=== PATIENT | female | born 1975 | race Caucasian/White ===

== ENCOUNTER 2022-08-15 20:01 | Inpatient (IN) | payer BC ==
[~2022-08-15] VITALS: Ht 154.9 cm; Wt 74.8 kg
[2022-08-15 20:10] VITALS: BP_SYST 180
[2022-08-15] MEDS ORDERED: MORPHINE 4 MG INJ. 4 MG/ML VIAL IVP ONE ×2 (20:15→22:15)
[2022-08-15] MEDS ORDERED: KETOROLAC TROMETHAMINE 30 MG VIAL IVP ONE (20:15)
[2022-08-15] MEDS ORDERED: NACL 0.9% 1,000 ML IV ONE (21:00)
[2022-08-15 21:31] LABS: BASOPHILS # (AUTO) 0.1 K/uL (0.0-0.2); BASOPHILS % (AUTO) 0.9 % (0.0-2.0); EOSINOPHILS # (AUTO) 0.1 K/uL (0.0-0.4); EOSINOPHILS % (AUTO) 2.4 % (0.0-4.0); HEMATOCRIT 36.4 % (36-48); HEMOGLOBIN 12.9 g/dL (12.0-16.0); LYMPHOCYTES # (AUTO) 1.9 K/uL (1.0-5.5); LYMPHOCYTES % (AUTO) 36.5 % (20.5-51.5); MEAN CORPUSCULAR HEMOGLOBIN 30 pg (27-31); MEAN CORPUSCULAR HGB CONC 36 % (32-36); MEAN CORPUSCULAR VOLUME 83 fL (79.0-98.0); MONOCYTES # (AUTO) 0.3 K/uL (0.0-1.0); MONOCYTES % (AUTO) 5.2 % (1.7-9.3); NEUTROPHILS # (AUTO) 2.9 K/uL (1.8-7.7); PLATELET COUNT (AUTO) 230 K/uL (130-430); RED BLOOD CELL COUNT(AUTO) 4.36 MIL/uL (4.2-6.2); RED CELL DISTRIBUTION WIDTH 13.2 % (9.0-15.0); WHITE BLOOD COUNT (AUTO) 5.3 K/uL (4.8-10.8)
[2022-08-15 21:41] LABS: CALCIUM 8.9 mg/dL (8.4-11.0); CREATININE 0.64 mg/dL (0.55-1.30)
[2022-08-15 21:46] LABS: ALBUMIN 3.8 g/dL (3.4-4.8); TOTAL BILIRUBIN 0.2 mg/dL (0.0-1.0)
[2022-08-15] MEDS ORDERED: HYDROcodone/ACETAMIN 10-325 MG TAB PO PRN (22:00)
[2022-08-15] MEDS ORDERED: ACETAMINOPHEN 325 MG TABLET PO PRN (22:00)
[2022-08-15] MEDS ORDERED: HYDR-4284 PO (22:05)
[2022-08-16] MEDS ORDERED: NALOXONE HCL 0.4 MG/ML AMP (NARCAN) IVP PRN (01:00)
[2022-08-16] MEDS: GABAPENTIN 300 MG CAPSULE PO SCH ×4 (01:00→20:47)
[2022-08-16 01:01] VITALS: BP_SYST 144
[2022-08-16 01:03] VITALS: BP_SYST 144
[2022-08-16] MEDS: HYDROmorphone 2 MG TAB PO PRN ×6 (01:50→23:33)
[2022-08-16] MEDS: D5/0.45 NS 1,000 ML IV SCH ×2 (02:18→08:57)
[2022-08-16] MEDS ORDERED: lidocaine (02:30)
[2022-08-16] MEDS: OXYCODONE/ACETAMINOPHEN *10*mg/325 mg TABLET PO PRN ×2 (02:36→20:23)
[2022-08-16 05:51] VITALS: BP_SYST 128
[2022-08-16] MEDS: MORPHINE 4 MG INJ. 4 MG/ML VIAL IVP PRN ×2 (07:34→22:12)
[2022-08-16] MEDS: LIDOCAINE PATCH 5% 1 EA TP SCH (08:58)
[2022-08-16 20:00] VITALS: BP_SYST 143
[2022-08-17] MEDS: OXYCODONE/ACETAMINOPHEN *10*mg/325 mg TABLET PO PRN ×3 (02:25→21:22)
[2022-08-17] MEDS: MORPHINE 4 MG INJ. 4 MG/ML VIAL IVP PRN ×4 (04:09→23:33)
[2022-08-17 05:59] VITALS: BP_SYST 138
[2022-08-17 08:00] VITALS: BP_SYST 149
[2022-08-17] MEDS: GABAPENTIN 300 MG CAPSULE PO SCH ×3 (09:00→22:11)
[2022-08-17] MEDS: LIDOCAINE PATCH 5% 1 EA TP SCH (09:02)
[2022-08-17 09:50] LABS: ALBUMIN 3.8 g/dL (3.4-4.8); CALCIUM 9.4 mg/dL (8.4-11.0); CREATININE 0.63 mg/dL (0.55-1.30); TOTAL BILIRUBIN 0.4 mg/dL (0.0-1.0)
[2022-08-17] MEDS: HYDROmorphone 2 MG TAB PO PRN ×2 (09:56→18:13)
[2022-08-17 10:17] LABS: BASOPHILS % (AUTO) 0.7 % (0.0-2.0); EOSINOPHILS # (AUTO) 0.1 K/uL (0.0-0.4); HEMATOCRIT 39.7 % (36-48); HEMOGLOBIN 13.7 g/dL (12.0-16.0); LYMPHOCYTES # (AUTO) 1.5 K/uL (1.0-5.5); LYMPHOCYTES % (AUTO) 38.7 % (20.5-51.5); MEAN CORPUSCULAR HEMOGLOBIN 29 pg (27-31); MEAN CORPUSCULAR HGB CONC 35 % (32-36); MEAN CORPUSCULAR VOLUME 84 fL (79.0-98.0); MONOCYTES # (AUTO) 0.2 K/uL (0.0-1.0); NEUTROPHILS # (AUTO) 2.1 K/uL (1.8-7.7); NEUTROPHILS % (AUTO) 53.6 % (40.0-70.0); PLATELET COUNT (AUTO) 197 K/uL (130-430); RED CELL DISTRIBUTION WIDTH 12.9 % (9.0-15.0); WHITE BLOOD COUNT (AUTO) 3.9 K/uL (4.8-10.8)
[2022-08-17 16:12] VITALS: BP_SYST 158
[2022-08-17] MEDS: PSYLLIUM HUSK 1 PKT PACKET PO SCH (22:11)
[2022-08-17] MEDS: DOCUSATE SODIUM 100 MG CAPSULE PO SCH (22:11)
[2022-08-18 01:08] VITALS: BP_SYST 157
[2022-08-18] MEDS: HYDROmorphone 2 MG TAB PO PRN ×3 (03:50→18:44)
[2022-08-18] MEDS: OXYCODONE/ACETAMINOPHEN *10*mg/325 mg TABLET PO PRN ×3 (05:06→22:26)
[2022-08-18 06:29] LABS: BASOPHILS % (AUTO) 0.7 % (0.0-2.0); EOSINOPHILS # (AUTO) 0.1 K/uL (0.0-0.4); EOSINOPHILS % (AUTO) 3.1 % (0.0-4.0); HEMATOCRIT 37.1 % (36-48); HEMOGLOBIN 12.9 g/dL (12.0-16.0); LYMPHOCYTES # (AUTO) 1.7 K/uL (1.0-5.5); LYMPHOCYTES % (AUTO) 40.1 % (20.5-51.5); MEAN CORPUSCULAR HEMOGLOBIN 29 pg (27-31); MEAN CORPUSCULAR HGB CONC 35 % (32-36); MEAN CORPUSCULAR VOLUME 84 fL (79.0-98.0); MONOCYTES # (AUTO) 0.2 K/uL (0.0-1.0); MONOCYTES % (AUTO) 5.1 % (1.7-9.3); NEUTROPHILS # (AUTO) 2.2 K/uL (1.8-7.7); PLATELET COUNT (AUTO) 194 K/uL (130-430); RED BLOOD CELL COUNT(AUTO) 4.43 MIL/uL (4.2-6.2); RED CELL DISTRIBUTION WIDTH 12.5 % (9.0-15.0); WHITE BLOOD COUNT (AUTO) 4.2 K/uL (4.8-10.8)
[2022-08-18 06:55] LABS: CALCIUM 9.1 mg/dL (8.4-11.0); CREATININE 0.63 mg/dL (0.55-1.30)
[2022-08-18 08:00] VITALS: BP_SYST 137
[2022-08-18] MEDS: GABAPENTIN 300 MG CAPSULE PO SCH ×3 (08:45→21:59)
[2022-08-18] MEDS: DOCUSATE SODIUM 100 MG CAPSULE PO SCH ×2 (08:45→21:59)
[2022-08-18] MEDS: MORPHINE 4 MG INJ. 4 MG/ML VIAL IVP PRN ×2 (08:46→16:02)
[2022-08-18] MEDS: LIDOCAINE PATCH 5% 1 EA TP SCH (09:00)
[2022-08-18] MEDS: PSYLLIUM HUSK 1 PKT PACKET PO SCH ×3 (09:00→22:00)
[2022-08-18 12:00] VITALS: BP_SYST 130
[2022-08-18] MEDS ORDERED: HYDR-3927 PO (12:08)
[2022-08-18] MEDS ORDERED: DOCU-144 PO (12:08)
[2022-08-18] MEDS ORDERED: PSYL3.4P5 PO (12:09)
[2022-08-18] MEDS ORDERED: Lidocaine Patch 5% TP (12:09)
[2022-08-18] MEDS ORDERED: NEU300 PO (12:09)
[2022-08-18] MEDS ORDERED: PERC10 PO (12:09)
[2022-08-18] MEDS ORDERED: SODIUM PHOSPHATE,MONO-DIBASIC 133 ML ENEMA RC ONE (15:30)
[2022-08-18 18:30] VITALS: BP_SYST 124
[2022-08-18 20:00] VITALS: BP_SYST 145
[2022-08-19] VITALS: BP_SYST 151
[2022-08-19] MEDS: MORPHINE 4 MG INJ. 4 MG/ML VIAL IVP PRN ×4 (03:24→23:50)
[2022-08-19 06:12] LABS: BASOPHILS % (AUTO) 0.6 % (0.0-2.0); EOSINOPHILS # (AUTO) 0.2 K/uL (0.0-0.4); EOSINOPHILS % (AUTO) 3.4 % (0.0-4.0); HEMOGLOBIN 12.4 g/dL (12.0-16.0); LYMPHOCYTES # (AUTO) 1.8 K/uL (1.0-5.5); LYMPHOCYTES % (AUTO) 38.1 % (20.5-51.5); MEAN CORPUSCULAR HEMOGLOBIN 30 pg (27-31); MEAN CORPUSCULAR HGB CONC 35 % (32-36); MEAN CORPUSCULAR VOLUME 84 fL (79.0-98.0); MONOCYTES # (AUTO) 0.3 K/uL (0.0-1.0); MONOCYTES % (AUTO) 6.3 % (1.7-9.3); NEUTROPHILS # (AUTO) 2.4 K/uL (1.8-7.7); NEUTROPHILS % (AUTO) 51.6 % (40.0-70.0); PLATELET COUNT (AUTO) 187 K/uL (130-430); RED BLOOD CELL COUNT(AUTO) 4.19 MIL/uL (4.2-6.2); RED CELL DISTRIBUTION WIDTH 12.8 % (9.0-15.0); WHITE BLOOD COUNT (AUTO) 4.6 K/uL (4.8-10.8)
[2022-08-19 06:27] LABS: CALCIUM 8.8 mg/dL (8.4-11.0); CREATININE 0.7 mg/dL (0.55-1.30)
[2022-08-19 08:00] VITALS: BP_SYST 140
[2022-08-19] MEDS: HYDROmorphone 2 MG TAB PO PRN ×3 (09:54→22:05)
[2022-08-19] MEDS: GABAPENTIN 300 MG CAPSULE PO SCH ×3 (09:54→22:03)
[2022-08-19] MEDS: PSYLLIUM HUSK 1 PKT PACKET PO SCH ×3 (09:55→21:00)
[2022-08-19] MEDS: LIDOCAINE PATCH 5% 1 EA TP SCH (09:55)
[2022-08-19] MEDS: DOCUSATE SODIUM 100 MG CAPSULE PO SCH ×2 (09:55→22:03)
[2022-08-19 12:00] VITALS: BP_SYST 123
[2022-08-19 16:00] VITALS: BP_SYST 130
[2022-08-20 00:25] VITALS: BP_SYST 111
[2022-08-20] MEDS: HYDROmorphone 2 MG TAB PO PRN ×2 (04:41→17:49)
[2022-08-20 06:05] LABS: BASOPHILS % (AUTO) 0.6 % (0.0-2.0); EOSINOPHILS # (AUTO) 0.1 K/uL (0.0-0.4); EOSINOPHILS % (AUTO) 2.7 % (0.0-4.0); HEMATOCRIT 35.1 % (36-48); HEMOGLOBIN 12.4 g/dL (12.0-16.0); LYMPHOCYTES # (AUTO) 1.6 K/uL (1.0-5.5); LYMPHOCYTES % (AUTO) 34.9 % (20.5-51.5); MEAN CORPUSCULAR HEMOGLOBIN 30 pg (27-31); MEAN CORPUSCULAR HGB CONC 35 % (32-36); MEAN CORPUSCULAR VOLUME 84 fL (79.0-98.0); MONOCYTES # (AUTO) 0.3 K/uL (0.0-1.0); MONOCYTES % (AUTO) 5.4 % (1.7-9.3); NEUTROPHILS # (AUTO) 2.6 K/uL (1.8-7.7); NEUTROPHILS % (AUTO) 56.4 % (40.0-70.0); PLATELET COUNT (AUTO) 189 K/uL (130-430); RED BLOOD CELL COUNT(AUTO) 4.19 MIL/uL (4.2-6.2); RED CELL DISTRIBUTION WIDTH 13.3 % (9.0-15.0); WHITE BLOOD COUNT (AUTO) 4.6 K/uL (4.8-10.8)
[2022-08-20 06:20] LABS: CALCIUM 8.9 mg/dL (8.4-11.0); CREATININE 0.67 mg/dL (0.55-1.30)
[2022-08-20] MEDS: OXYCODONE/ACETAMINOPHEN *10*mg/325 mg TABLET PO PRN ×2 (07:31→21:56)
[2022-08-20 08:00] VITALS: BP_SYST 120
[2022-08-20] MEDS: PSYLLIUM HUSK 1 PKT PACKET PO SCH ×3 (09:00→21:56)
[2022-08-20] MEDS: DOCUSATE SODIUM 100 MG CAPSULE PO SCH ×2 (09:00→21:56)
[2022-08-20] MEDS: GABAPENTIN 300 MG CAPSULE PO SCH ×4 (09:00→21:56)
[2022-08-20] MEDS: LIDOCAINE PATCH 5% 1 EA TP SCH (10:14)
[2022-08-20] MEDS: MORPHINE 4 MG INJ. 4 MG/ML VIAL IVP PRN ×2 (10:14→15:11)
[2022-08-20] MEDS ORDERED: BISACODYL 10 MG/SUPPOSITORY RC ONE (10:15)
[2022-08-20] MEDS ORDERED: POLYETHYLENE GLYCOL 3350, 17 GM/ POWD.PACK PO ONE (10:15)
[2022-08-20 12:00] VITALS: BP_SYST 132
[2022-08-20 16:00] VITALS: BP_SYST 118
[2022-08-20 20:00] VITALS: BP_SYST 151
[2022-08-21] VITALS: BP_SYST 138
[2022-08-21] MEDS: OXYCODONE/ACETAMINOPHEN *10*mg/325 mg TABLET PO PRN ×2 (02:02→05:57)
[2022-08-21 04:00] VITALS: BP_SYST 126
[2022-08-21 06:20] LABS: BASOPHILS % (AUTO) 0.9 % (0.0-2.0); EOSINOPHILS # (AUTO) 0.1 K/uL (0.0-0.4); EOSINOPHILS % (AUTO) 2.5 % (0.0-4.0); HEMATOCRIT 34.2 % (36-48); LYMPHOCYTES # (AUTO) 1.7 K/uL (1.0-5.5); LYMPHOCYTES % (AUTO) 37.1 % (20.5-51.5); MEAN CORPUSCULAR HEMOGLOBIN 29 pg (27-31); MEAN CORPUSCULAR HGB CONC 35 % (32-36); MEAN CORPUSCULAR VOLUME 84 fL (79.0-98.0); MONOCYTES # (AUTO) 0.2 K/uL (0.0-1.0); MONOCYTES % (AUTO) 5.4 % (1.7-9.3); NEUTROPHILS # (AUTO) 2.4 K/uL (1.8-7.7); NEUTROPHILS % (AUTO) 54.1 % (40.0-70.0); PLATELET COUNT (AUTO) 197 K/uL (130-430); RED BLOOD CELL COUNT(AUTO) 4.07 MIL/uL (4.2-6.2); RED CELL DISTRIBUTION WIDTH 12.8 % (9.0-15.0); WHITE BLOOD COUNT (AUTO) 4.5 K/uL (4.8-10.8)
[2022-08-21 06:34] LABS: ALBUMIN 3.5 g/dL (3.4-4.8); CALCIUM 8.8 mg/dL (8.4-11.0); CREATININE 0.71 mg/dL (0.55-1.30); TOTAL BILIRUBIN 0.4 mg/dL (0.0-1.0)
[2022-08-21 07:37] VITALS: BP_SYST 118
[2022-08-21 08:00] VITALS: BP_SYST 122
[2022-08-21] MEDS ORDERED: POLYETHYLENE GLYCOL 3350, 17 GM/ POWD.PACK PO SCH (09:00)
== END 2022-08-21 10:10 | disposition home or self-care (01) | DRG 552 ==
LOC: SED 20:01 → SMU 21:58
PROVIDERS: ADMIT Preventive Medicine Preventive Medicine/Occupational Environmental Medicine; ATTEND Preventive Medicine Preventive Medicine/Occupational Environmental Medicine
DX: M48.061 Spinal stenosis, lumbar region without neurogenic claudication (principal); R53.81 Other malaise; M47.816 Spondylosis without myelopathy or radiculopathy, lumbar region; D72.819 Decreased white blood cell count, unspecified; G89.29 Other chronic pain; R73.9 Hyperglycemia, unspecified; Z20.822 Contact with and (suspected) exposure to COVID-19; Z79.891 Long term (current) use of opiate analgesic; Z79.899 Other long term (current) drug therapy; Z90.710 Acquired absence of both cervix and uterus
CPT/HCPCS: 36415; 72131; 76376; 80048; 80053; 83605; 85025; 87040; 96361; 96374; 96375; 96376; 97110-GP; 97112-GP; 97116-GP; 97530-GP; 99285; J1885; J2270

== ENCOUNTER 2023-04-06 08:30 | Emergency (ER) | payer BC ==
[~2023-04-06] VITALS: Ht 154.9 cm; Wt 79.4 kg
[~2023-04-06 08:30] MED LIST: DOCU-144 PO; HYDR-3927 PO; HYDR-4284 PO; Lidocaine Patch 5% TP; NEU300 PO; PERC10 PO; PSYL3.4P5 PO; lidocaine
[2023-04-06 08:35] VITALS: BP_SYST 152; PULSE 86; RESP 18; TEMP 98.3; O2SAT 100
[2023-04-06] MEDS ORDERED: KETOROLAC TROMETHAMINE 30 MG VIAL IVP ONE (09:00)
[2023-04-06 09:17] LABS: BASOPHILS % (AUTO) 0.7 % (0.0-2.0); EOSINOPHILS # (AUTO) 0.1 K/uL (0.0-0.4); EOSINOPHILS % (AUTO) 2.3 % (0.0-4.0); HEMATOCRIT 34.9 % (36-48); HEMOGLOBIN 12.2 g/dL (12.0-16.0); LYMPHOCYTES # (AUTO) 1.1 K/uL (1.0-5.5); LYMPHOCYTES % (AUTO) 27.9 % (20.5-51.5); MEAN CORPUSCULAR HEMOGLOBIN 29 pg (27-31); MEAN CORPUSCULAR HGB CONC 35 % (32-36); MEAN CORPUSCULAR VOLUME 81 fL (79.0-98.0); MONOCYTES # (AUTO) 0.2 K/uL (0.0-1.0); MONOCYTES % (AUTO) 6.1 % (1.7-9.3); NEUTROPHILS # (AUTO) 2.6 K/uL (1.8-7.7); PLATELET COUNT (AUTO) 203 K/uL (130-430); RED BLOOD CELL COUNT(AUTO) 4.29 MIL/uL (4.2-6.2); RED CELL DISTRIBUTION WIDTH 13.9 % (9.0-15.0); WHITE BLOOD COUNT (AUTO) 4.1 K/uL (4.8-10.8)
[2023-04-06 09:35] LABS: CALCIUM 8.4 mg/dL (8.4-11.0); CREATININE 0.71 mg/dL (0.55-1.30)
[2023-04-06 09:39] LABS: ALBUMIN 3.6 g/dL (3.4-4.8); TOTAL BILIRUBIN 0.4 mg/dL (0.0-1.0)
[2023-04-06 10:32] LABS: CLARITY/URINE CLEAR (CLEAR); COLOR,URINE YELLOW (YELLOW)
[2023-04-06 10:33] LABS: BILIRUBIN,URINE NEGATIVE (NEGATIVE); BLOOD, URINE NEGATIVE (NEGATIVE); GLUCOSE,URINE NEGATIVE (NEGATIVE); KETONES,URINE NEGATIVE (NEGATIVE); LEUKOCYTE ESTERASE ,URINE NEGATIVE (NEGATIVE); NITRITE, URINE NEGATIVE (NEGATIVE); PROTEIN URINE NEGATIVE (NEGATIVE); UROBILINOGEN,URINE 0.2 (0.2-1.0)
== END 2023-04-06 09:58 | disposition home or self-care (01) ==
LOC: SED 08:30
DX: R10.33 Periumbilical pain (principal); Z79.899 Other long term (current) drug therapy
CPT/HCPCS: 99285; 74176; 80053; 83690; 85025; 36415; 76376; 96372; 81003; J1885